=== PATIENT | male | born 1960 | race Caucasian/White ===

== ENCOUNTER 2018-07-12 09:51 | Outpatient (CLI) | payer MEDICAID, SELFPAY ==
[2018-07-12 13:06] LABS: Anion Gap 8.1 mmol/L (3-11); BUN 23 mg/dL (7-18); CO2 27.9 mmol/L (21.0-32.0); CREATININE 1.19 mg/dL (0.70-1.30); Calcium 9.2 mg/dL (8.5-10.1); Chloride 104 mmol/L (98-107); Glucose 92 mg/dL (70-100); Potassium 4.6 mmol/L (3.5-5.1); Sodium 140 mmol/L (136-145)
== END 2018-07-12 10:11 ==
PROVIDERS: PCP Family Medicine; Visit Provider Family Medicine
DX: I10 Essential (primary) hypertension (principal)
CPT/HCPCS: 36415; 80048

== ENCOUNTER 2019-07-18 07:00 | Outpatient (CLI) | payer MEDICAID, SELFPAY ==
[2019-07-18 12:44] LABS: Calculated LDL 111 mg/dL; Cholesterol 180 mg/dL (50-200); HDL Cholesterol 54 mg/dL (40-60); Triglyceride 78 mg/dL (30-150)
== END 2019-07-18 07:20 ==
PROVIDERS: PCP Family Medicine; Visit Provider Family Medicine
DX: Z00.00 Encounter for general adult medical examination without abnormal findings (principal); Z13.220 Encounter for screening for lipoid disorders
CPT/HCPCS: 36415; 80061

== ENCOUNTER 2020-07-25 11:10 | Outpatient (REF) | payer MEDICAID, SELFPAY ==
[2020-07-25 13:59] LABS: Anion Gap 5.3 mmol/L (3-11); BUN 19 mg/dL (7-18); CO2 29.7 mmol/L (21.0-32.0); CREATININE 1.28 mg/dL (0.70-1.30); Calcium 9.5 mg/dL (8.5-10.1); Calculated LDL 114 mg/dL (<100); Chloride 104 mmol/L (98-107); Cholesterol 182 mg/dL (<200); Estimated GFR 57.33 (mL/min/1.73m2); Glucose 100 mg/dL (74-106); HDL Cholesterol 50 mg/dL (40-60); Potassium 5.1 mmol/L (3.5-5.1); Sodium 139 mmol/L (136-145); Triglyceride 92 mg/dL (<150)
[2020-07-25 21:53] LABS: PSA, Screening 1.1 ng/mL (0.0-4.5)
== END 2020-07-25 11:30 ==
LOC: LBN 11:10
PROVIDERS: PCP Nurse Practitioner; Visit Provider Family Medicine
DX: I10 Essential (primary) hypertension (principal); Z12.5 Encounter for screening for malignant neoplasm of prostate
CPT/HCPCS: 80048; 80061; 84153

== ENCOUNTER 2020-08-23 02:21 | Outpatient (CLI) | payer MEDICAID, SELFPAY ==
[2020-08-26 10:18] LABS: SARS-CoV-2 RNA Not Detected (NotDetected); SARS-CoV-2 RNA Source Nasal/Nares
== END 2020-08-23 02:41 ==
PROVIDERS: PCP Nurse Practitioner; Visit Provider Surgery
DX: Z01.818 Encounter for other preprocedural examination (principal)
CPT/HCPCS: U0003

== ENCOUNTER 2020-08-27 06:13 | Day surgery (SDC) | payer MEDICAID, SELFPAY ==
[2020-08-27] VITALS (7 sets, daily range): BP systolic 98–136; BP diastolic 52–86; PULSE 63–79; RESP 16–23; TEMP 36–37; O2SAT 95–100
[2020-08-27] MEDS: Lactated Ringers 1,000 ML 80 ML IV (06:49)
--- NOTE | 2020-08-27 07:11 | W.PM.DSUDISC ---
Discharge Plan Disposition Patient Disposition: HOME Condition: Good Discharge Details Reason For Visit: Left inguinal hernia repair with mesh Attending Provider: Laurita Centeno Primary Care Provider: Isabell Valdivia Home Meds and New Rx's Prescriptions: Continued cyclobenzaprine 10 mg tablet 5 mg PO DAILY PRN (Reason: muscle spasm) Qty: 45 RF: 3 lisinopril 10 mg tablet 10 mg PO DAILY Qty: 90 RF: 4 omeprazole 20 mg capsule,delayed release(DR/EC) 20 mg PO DAILY Qty: 90 RF: 3 simvastatin [Zocor] 10 mg tablet 10 mg PO QHS Qty: 90 RF: 4 ascorbic acid (vitamin C) [Vitamin C] 500 MG tablet 500 mg PO DAILY RF: 0 Discharge Instructions Additional Instructions: The top bandage can be removed tomorrow. The steri strips will usually stick for about a week. When the edges start to curl up, they can be removed. It is okay to shower tomorrow, the water can run over the steri strips Do not swim or soak in a tub for two weeks Call for any concerns including fever, increased pain, vomiting, incision redness or drainage. Do not lift more than 15 pounds for four weeks. Walking and stairs are fine. Do not drive if on narcotic pain meds or if limited by pain. May use Tylenol alternating with ibuprofen for pain control. Ice is also an option. The maximum dose for Tylenol is 4000 mg/day. May use ibuprofen 800 mg every 8 hours as needed. If concerned about constipation, you may use a stool softener or milk of magnesia. Stand Alone Forms: Anes.Nerve Block Instructions, DSU Post op Instructions, Tommy Perry (DSU) Referrals: Laurita Centeno MD [ [facility] STAFF PHYSICIAN] - (Return in 10-14 days for a postop visit.) Activity:: Do not lift more than 15# for four weeks Remove Dressings/Wound Care:: 24 hours Shower/Bathe:: 24 hours Diet:: As Tolerated Discharge Orders Discharge Orders: Discharge Order (Routine); Ordered 08/27/20 Ordered By: Laurita Centeno DS: Diagnosis Discharge Diagnosis (1) Left inguinal hernia: Status: Acute
--- NOTE | 2020-08-27 07:13 | ROE_ITS ---
Operative Note Operative Note DATE OF PROCEDURE: 08/27/20 PRE-OP DIAGNOSIS: Left inguinal hernia PROCEDURE: Left inguinal hernia repair with mesh SURGEON: Laurita Centeno SUPERINTENDENT HORTICULTURE: Jennifer Wood ANESTHESIA: GETA, regional and local Indications: This 60 year old man presents with a reducible left inguinal hernia. Procedure Description: The patient was placed supine on the operating table and his left groin was prepped and draped sterilely. The ASIS and pubic tubercle were identified and a transverse incision marked between the 2 locations. Local anesthetic was infiltrated and the Ioban placed. Incision was made with knife and subcutaneous tissue divided with cautery down to the external oblique fascia. Any bridging veins that were encountered were clamped, divided and ligated with 3-0 Vicryl ties. A small incision was made in the fascia and extended bluntly through the external inguinal ring. The spermatic cord was dissected free at the level of the pubic tubercle and encircled with a Félix drain. There was some laxity within the floor of the inguinal canal with some protrusion of fat. This tranversus abdominus muscle was reapproximated with interrupted 2-0 Prolene sutures times two. Dissection within the cord revealed a moderate sized hernia sac containing fat. This was dissected free of the cord structures, opened and suture ligated at the base. The excess sac was trimmed and then reduced. A medium mesh plug was sutured into the internal ring with interrupted 2-0 Prolene sutures. A flat sheet of mesh was sutured to the floor of the inguinal canal in standard Sharon fashion. The cord was inspected and was not compressed by the mesh. There was good hemostasis. The external oblique fascia was closed with a running 3-0 Vicryl stitch and Juarez's fascia closed with interrupted 3-0 Vicryl sutures. The skin was then closed with a running 4 Monocryl subcuticular stitch. He tolerated the procedure well and was stable to recovery.
[2020-08-27] MEDS: ceFAZolin 2 GM/50 ML BAG IVPB (07:34)
== END 2020-08-27 11:09 | disposition home or self-care (01) ==
PROVIDERS: PCP Nurse Practitioner; Visit Provider Surgery
PROC: (CPT 49505; principal; 2020-08-27 07:30)
DX: K40.90 Unilateral inguinal hernia, without obstruction or gangrene, not specified as recurrent (principal); I10 Essential (primary) hypertension; E78.5 Hyperlipidemia, unspecified; K21.9 Gastro-esophageal reflux disease without esophagitis
CPT/HCPCS: 49505; 76942; C1781; J0690; J2001; J2704

== ENCOUNTER 2020-12-17 01:02 | Outpatient (CLI) | payer MEDICAID, SELFPAY ==
--- NOTE | 2020-12-17 07:00 | DI.MRI_ITS ---
EXAM: MR CERVICAL SPINE WO CLINICAL HISTORY: chronic neck pain worsening now with radiculopathy,M54.2,M54.10 TECHNIQUE: Multiplanar multisequence MRI of the cervical spine was performed without intravenous con trast. COMPARISON: No exams were available for comparison FINDINGS: BONES: Vertebral body heights are maintained. Intervertebral disc spaces are normal. Alignment is nor mal. Bone marrow signal intensity is within normal limits. CERVICAL CORD: Craniovertebral junction is unremarkable. The cervical cord is normal size and signal intensity. SOFT TISSUES: Unremarkable. C2-3: No disc herniation or bulge is identified. C3-4: Minimal disc bulging. C4-5: endplate osteophytes, eccentric toward the right and mild posterior disc bulging causing efface ment of the anterior CSF space and right neural foraminal narrowing. C5-6: Moderate loss of disc height. Broad-based disc osteophytes narrowing the AP dimension of the c entral canal and effacing the CSF space. Severe right and [id number]-vd-cdhzlvfe left neural foraminal pam rowing. C6-7: Mild disc bulging. C7-T1 and T1-2: No disc herniation or bulge is identified. IMPRESSION: Disc osteophytes, greatest at C 5 6, causing mild central canal stenosis and severe right neural fora carlos narrowing. No disc herniation is seen at any level. DATA REPOSITORY:
== END 2020-12-17 01:03 ==
LOC: DI 01:03
PROVIDERS: PCP Nurse Practitioner; Visit Provider Nurse Practitioner
DX: M54.2 Cervicalgia (principal); M54.12 Radiculopathy, cervical region; M48.02 Spinal stenosis, cervical region
CPT/HCPCS: 72141

== ENCOUNTER 2021-07-29 03:23 | Outpatient (CLI) | payer MEDICAID, SELFPAY ==
[2021-07-29 12:34] LABS: CREATININE 1.1 mg/dL (0.70-1.30); Calculated LDL 110 mg/dL (<100); Cholesterol 177 mg/dL (<200); HDL Cholesterol 52 mg/dL (40-60); Potassium 4.8 mmol/L (3.5-5.1); Triglyceride 78 mg/dL (<150)
== END 2021-07-29 03:24 | disposition home or self-care (01) ==
LOC: LOS 03:24
PROVIDERS: PCP Nurse Practitioner; Visit Provider Nurse Practitioner
DX: E78.5 Hyperlipidemia, unspecified (principal); I10 Essential (primary) hypertension
CPT/HCPCS: 36415; 80061; 82565; 84132

== ENCOUNTER 2022-08-28 01:32 | Outpatient (CLI) | payer MEDICAID, SELFPAY ==
--- OUTSIDE RECORDS SUMMARY | 2022-08-28 01:38 | XMS_ITS | Encounter Summary ---
:1960 Author Organization [facility] [place] [address] Care Team Providers Name Role Phone Salomon Paula MD, John Primary Care Provider Encounter Details Date Type Department Care Team Description 12/17/2020 Ancillary Procedure Radiology at [facility] Camden Rousseau [place] [address] NEUROS[facility]GERY[place], [place] [address] (Wo rk) Social History Tobacco Use Types Packs/Day Years Used Date Never Assessed Sex Assigned at Date Recorded Not on file documented as of this encounter Plan of Treatment Not on filedocumented as of this encounter Procedures Procedure Name Priority Date/Time Associated Diagnosis Comme nts FILM LIBRARY Routine 12/17/2020 5:03 PM Results f or this STORAGE ONLY MR EST procedure ar e in SPINE the results section. documented in this encounter Results Film Library- Storage Only MR Spine (12/17/2020 5:03 PM EST) Specimen (Source) Anatomical Location Collection Method / Collectio n Time Received Time / Laterality Volume Narrative CAMERON - 12/17/2020 5:03 PM EST This exam is auto-finalizing. It's purpo se is for storage only. Camden Rousseau MD IMG FILM LIBRARY ORDERABLES Performing Organization Address City/State/ZIP Code Phon e Number [place], [place] documented in this encounter Visit Diagnoses Not on filedocumented in this encounter Care Teams Assistant Athletic Trainer Relationship Specialty Start Date End Date Reji Latif MD PCP - General 09/16/10 [address] [place], [place] [id number] documented as of this encounter
--- OUTSIDE RECORDS SUMMARY | 2022-08-28 01:38 | XMS_ITS | Clinical Summary ---
:1960 Author Organization [facility] Address [address] [place] [address] Care Team Providers Name Role Phone Unknown, Provider Primary Care Provider Social History Tobacco Use Types Packs/Day Years Used Date Never Assessed Sex Assigned at Date Recorded Not on file Plan of Treatment Not on file Insurance Payer Benefit Plan Subscriber ID Effective Phone Address Typ e / Group Dates MEDICAID ACO MEDICAID ACO [id number] 2019-Pres [phone] [address] Medicaid [place] [address] [facility] [place] [address] Care Teams Dry Placer Machine Operator Relationship Specialty Start Date End Date Unknown, Provider, PCP - General 02/06/19
--- OUTSIDE RECORDS SUMMARY | 2022-08-28 01:38 | XMS_ITS | Clinical Summary ---
:1960 Author Organization [facility] [place] [address] Care Team Providers Name Role Phone Salomon Paula MD, John Primary Care Provider Allergies No known active allergies Medications Medication Sig Dispensed Refills Start Date End Date Status omeprazole (PRILOSEC OTC) 20 mg 0 02/21/20 05 Active tablet cyclobenzaprine (FLEXERIL) 10 mg 0 005 Active tablet enalapril (VASOTEC) 10 mg tablet 0 005 Active simvastatin (ZOCOR) 20 mg tablet 0 005 Active Social History Tobacco Use Types Packs/Day Years Used Date Never Assessed Sex Assigned at Date Recorded Not on file Plan of Treatment Health Maintenance Due Date Last Done Comments Covid-19 Vaccine (#1) 1960 HIV screen 01/21/1978 Hepatitis C Screening 01/21/1978 Tdap adult 01/21/1979 Tetanus vaccine 01/21/1979 Colonoscopy 01/21/2005 Zoster vaccine (1 of 2) 01/21/2010 Advance Directive 01/21/2015 Influenza (Flu) vaccine (1 of 1 - Influenza standard 06/25/2022 series) Insurance Payer Benefit Plan / Subscriber ID Effective Dates Phone Addre ss Type Group [place] [id number] 2020-Pres [phone] [address] [facility] ent [address] [place], [place] [phone] Care Teams Clinical Research Spec Relationship Specialty Start Date End Date Reji Latif MD PCP - General 09/16/10 [address] [place] [address] (Zacu)
--- OUTSIDE RECORDS SUMMARY | 2022-08-28 01:38 | XMS_ITS | Encounter Summary ---
:1960 Author Organization [facility] Address [address] [place] [id number] Care Team Providers Name Role Phone Unavailable Primary Care Provider Unavailable Encounter Details Date Type Department Care Team Description 02/03/2019 Hospital Encounter [facility]- Aditi Unknown, Provider, [facility] [address] [facility] [phone] [place] [address] (Work) [phone] Social History Tobacco Use Types Packs/Day Years Used Date Never Assessed Sex Assigned at Date Recorded Not on file documented as of this encounter Discharge Disposition Disposition Code Departure Means Destination Home or Self Assisted documented in this encounter Plan of Treatment Not on filedocumented as of this encounter Visit Diagnoses Not on filedocumented in this encounter
--- OUTSIDE RECORDS SUMMARY | 2022-08-28 01:38 | XMS_ITS | Encounter Summary ---
:1960 Author Organization [facility] Address [address] [place] [address] Care Team Providers Name Role Phone Unknown, Provider Primary Care Provider Encounter Details Date Type Department Care Team Description 07/25/2020 Lab Requisition [facility] Outr Resulting Lab, Pathology & Laboratory Provider [facility] [address] [place] [address] Social History Tobacco Use Types Packs/Day Years Used Date Never Assessed Sex Assigned at Date Recorded Not on file documented as of this encounter Plan of Treatment Not on filedocumented as of this encounter Procedures Procedure Name Priority Date/Time Associated Comments Diagnosis PSA TOTAL, Routine 07/25/2020 10:00 Results for this DIAGNOSTIC EDT procedure are i n the results section. documented in this encounter Results PSA TOTAL, DIAGNOSTIC (07/25/2020 10:00 EDT) Pathologist Sig nature PSA 1.1 0.0 - 4.5 ng/mL [facility] Specimen Blood - Venous blood (substance) Narrative [facility] - 07/25/2020 21:49 EDT NOTE: Serum PSA concentration should not be in terpreted as absolute evidence for the presence or absence of malignant disease. Assayed on Siemens ADVIA Centaur XPT usi ng chemiluminescent technology.??Values obtained by using different assay methods cannot be used interchangeably. Performing Organization Address City/State/ZIP Code Phon e Number [facility] [address] [place] [address] SERVICES documented in this encounter Visit Diagnoses Not on filedocumented in this encounter Care Teams Printer Operator Relationship Specialty Start Date End Date Unknown, Provider, PCP - General 02/06/19 documented as of this encounter
--- OUTSIDE RECORDS SUMMARY | 2022-08-28 01:38 | XMS_ITS | Encounter Summary ---
:1960 Author Organization [facility] [place] [address] Care Team Providers Name Role Phone Salomon Paula MD, John Primary Care Provider Encounter Details Date Type Department Care Team Description 08/23/2020 [facility] [place] [address] Social History Tobacco Use Types Packs/Day Years Used Date Never Assessed Sex Assigned at Date Recorded Not on file documented as of this encounter Medications at Time of Discharge Medication Sig Dispensed Refills Start Date End Date enalapril (VASOTEC) 10 mg tablet 0 09/2005 simvastatin (ZOCOR) 20 mg tablet 0 09/2005 cyclobenzaprine (FLEXERIL) 10 mg tablet 0 04/07/2005 omeprazole (PRILOSEC OTC) 20 mg tablet 0 02/20/2005 documented as of this encounter Plan of Treatment Not on filedocumented as of this encounter Procedures Procedure Name Priority Date/Time Associated Diagnosis Comme nts COVID-19 PCR Routine 08/23/2020 1:03 PM Results f or this EDT procedure are i n the results section . documented in this encounter Results COVID-19 PCR (08/23/2020 1:03 PM EDT) [facility] Method Time Signature SARS-CoV-2 Not Detected Not Detected [facility] Comment: This result should be interpreted in com bination with the clinical observations, patient history and epidem iological information in making a final diagnosis. For testing of asymptomatic i ndividuals, assay performance characteristics and clinical utility hav e not been evaluated. Testing for SARS-CoV-2 (Severe acute respiratory syn drome coronavirus 2, formerly known as 2019 novel coronavirus or 2019-nCoV) to aid in the diagnosis of COVID-19 is performed using the [employer] RealTime SARS -CoV-2 Assay as authorized by the FDA Emergency Use Authorization (EUA). This EUA assay is intended for In-vitro Diagnostic (IVD) use with respiratory sp ecimens such as nasopharyngeal swabs collected from individuals during the ac [place] phase of infection. This assay is performed based on the instructions for use provided by [employer] and additional guidance provided by CDC and FDA. Testing is performed in the [facility] within the Department of Pathology and Laboratory Medicine at [facility], certified under the Clinical Laboratory Improvement Amendments of 1988 (CLIA), 42 U.S.C. 263a, to perform high complexi ty tests. Assay performance has been verified according to clinical laborator y regulatory requirements for use with specimens collected from individuals dionte pected of COVID-19. Test results are provided above. A result of ? Not Detected? indicates that the viral RNA target is not present above the limit of detect ion, but does not preclude SARS-CoV-2 infection. False negative results may oc cur if a specimen is improperly collected, transported or handled; if am plification inhibitors are present; or if inadequate numbers of viral particles are present in the specimen. When a diagnostic test is negative, the possibi lity of a false negative result should be considered in the context of a patien t? s recent exposures and the presence of clinical signs and symptoms consisten t with COVID-19. A result of ? Detected? indicates that RNA from SARS-CoV-2 was d etected and the patient is infected. As required or requested by public health a uthorities, positive specimens may be sent for additional testing. Positive an d negative predictive values for this test are highly dependent on disease pre valence. A result of ? Invalid? indicates that neither the viral RNA tar gets nor the internal control target was detected. An invalid result suggests the presence of inhibitors. Recollection and re-testing is recommend ed in the case of an invalid result. CDC COVID-19 criteria for testing on hum an specimens and clinical management guidance information are available at th e CDC Coronavirus Disease 2019 (COVID-19) webpage under ? Information for Healthcare Professionals? (https://www.cdc.gov/coronavirus/2019-nc ov/hcp/index.html) Additional information about this and ot her EUA tests can be found in provider and patient fact sheets at the following FDA website: https://www.fda.gov/medical-devices/zmxpvorrebc-muvrspu-8755-mfbzl-41-wjbpxptas- olp-kcbebnjkdzmrwz-svxkshy-devices/srzje-jhdkkmeycoz-fbjl SARS-Cov-2 RNA Source Nasal [facility] Specimen Anatomical Collection Method Collection Time Receive d Time (Source) Location / / Volume Laterality Specimen from Other / Unknown 08/23/2020 1:03 PM 08/23 nose (specimen) EDT 11:21 PM EDT Resulting Agency Comment Spec In Lab Laurita Centeno MD MICROBIOLOGY - GENERAL ORDER [facility] Performing Organization Address City/State/[place] [address] documented in this encounter Visit Diagnoses Not on filedocumented in this encounter Care Teams Prosthodontist/Educator Relationship Specialty Start Date End Date Reji Latif MD PCP - General 09/16/10 [address] [place] [address] documented as of this encounter
[2022-08-28 12:34] LABS: CREATININE 1.1 mg/dL (0.70-1.30); Calculated LDL 111 mg/dL (<100); Cholesterol 182 mg/dL (<200); HDL Cholesterol 58 mg/dL (40-60); Potassium 4.4 mmol/L (3.5-5.1); Triglyceride 69 mg/dL (<150)
== END 2022-08-28 01:33 | disposition home or self-care (01) ==
LOC: LOS 01:32
PROVIDERS: PCP Nurse Practitioner Family; Visit Provider Nurse Practitioner
DX: I10 Essential (primary) hypertension (principal); E78.5 Hyperlipidemia, unspecified
CPT/HCPCS: 36415; 80061; 82565; 84132

== ENCOUNTER 2023-09-01 01:21 | Outpatient (CLI) | payer MEDICAID, SELFPAY ==
[2023-09-01 13:12] LABS: ALT 26 U/L (16-63); AST 20 U/L (15-37); Albumin 3.7 g/dL (3.4-5.0); Alkaline Phosphatase 128 U/L (46-116); Anion Gap 10.4 mmol/L (3-11); BUN 13 mg/dL (7-18); Bilirubin, Total 0.4 mg/dL (0.2-1.0); CO2 25.6 mmol/L (21.0-32.0); CREATININE 1.1 mg/dL (0.70-1.30); Calcium 9.8 mg/dL (8.5-10.1); Calculated LDL 83 mg/dL (<100); Chloride 103 mmol/L (98-107); Cholesterol 146 mg/dL (<200); Estimated GFR 75.43 (mL/min/1.73m2); Glucose 100 mg/dL (74-106); HDL Cholesterol 46 mg/dL (40-60); Potassium 3.7 mmol/L (3.5-5.1); Sodium 139 mmol/L (136-145); Triglyceride 89 mg/dL (<150)
[2023-09-02 09:57] LABS: Hepatitis C Ab w Rflx HCV PCR Negative (Negative)
== END 2023-09-01 01:22 | disposition home or self-care (01) ==
LOC: LOS 01:21
PROVIDERS: PCP Nurse Practitioner Family; Visit Provider Nurse Practitioner Family
DX: E78.5 Hyperlipidemia, unspecified (principal); Z11.59 Encounter for screening for other viral diseases
CPT/HCPCS: 36415; 80053; 80061; 86803

== ENCOUNTER 2024-09-06 02:20 | Outpatient (CLI) | payer MEDICAID, SELFPAY ==
[2024-09-06 12:39] LABS: ALT 10 U/L (16-63); AST 18 U/L (15-37); Alkaline Phosphatase 115 U/L (46-116); Anion Gap 7.3 mmol/L (3-11); BUN 19 mg/dL (7-18); Bilirubin, Total 0.73 mg/dL (0.2-1.0); CO2 29.7 mmol/L (21.0-32.0); CREATININE 1.4 mg/dL (0.70-1.30); Calcium 9.7 mg/dL (8.5-10.1); Calculated LDL 109 mg/dL (<100); Chloride 107 mmol/L (98-107); Cholesterol 189 mg/dL (<200); Estimated GFR 56.13 (mL/min/1.73m2); Glucose 94 mg/dL (74-106); HDL Cholesterol 63 mg/dL (40-60); Sodium 144 mmol/L (136-145); Total Protein 7.9 g/dL (6.4-8.2); Triglyceride 86 mg/dL (<150)
== END 2024-09-06 02:21 | disposition home or self-care (01) ==
LOC: LOS 02:20
PROVIDERS: PCP Nurse Practitioner Family; Visit Provider Nurse Practitioner Family
DX: E78.5 Hyperlipidemia, unspecified (principal); Z23 Encounter for immunization; K21.9 Gastro-esophageal reflux disease without esophagitis; Z00.00 Encounter for general adult medical examination without abnormal findings; I10 Essential (primary) hypertension
CPT/HCPCS: 36415; 80053; 80061

== ENCOUNTER 2025-06-19 02:04 | Outpatient (CLI) | payer MEDICARE, SELFPAY ==
--- NOTE | 2025-06-19 06:30 | DI.US_ITS ---
Exam(s) US LOWER EXTREMITY VENOUS RT EXAM: US LOWER EXTREMITY VENOUS RT CLINICAL HISTORY: 1 month of rt leg swelling,m79.89 TECHNIQUE: Right lower extremity venous ultrasound performed using grayscale, color-flow, and spectral Doppler analysis. COMPARISON: There are no priors for comparison. FINDINGS: There is extensive thrombus seen in the right lower extremity. There is thrombus seen from the peroneal and tibial veins in the calf to the visualized portions of the external iliac vein. The common femoral, femoral and popliteal veins are all involved and contain thrombus. The thrombus is mostly occlusive throughout its entire length. The visualized greater saphenous vein is patent. There is no evidence of a Lyons cyst. The soft tissues are unremarkable. IMPRESSION: Extensive right lower extremity thrombus from the right external iliac vein all the way to peroneal and tibial veins in the calf. DATA REPOSITORY:
== END 2025-06-19 02:24 ==
LOC: DI 02:04
PROVIDERS: PCP Nurse Practitioner Family; Visit Provider Nurse Practitioner Family
DX: M79.89 Other specified soft tissue disorders (principal)
CPT/HCPCS: 93971

== ENCOUNTER 2025-09-07 10:15 | Outpatient (CLI) | payer MEDICARE, SELFPAY ==
[2025-09-07 14:34] LABS: ALT 28 U/L (10-49); AST 23 U/L (<34); Albumin 4.6 g/dL (3.4-5.0); Alkaline Phosphatase 112 U/L (46-116); Anion Gap 11.5 mmol/L (3-11); BUN 16 mg/dL (9-23); Bilirubin, Total 0.70 mg/dL (0.2-1.2); CO2 25.5 mmol/L (20.0-31.0); Calcium 9.6 mg/dL (8.3-10.6); Chloride 107 mmol/L (98-107); Cholesterol 170 mg/dL (<200); Glucose 87 mg/dL (74-106); HDL Cholesterol 59 mg/dL (>40); Potassium 4.4 mmol/L (3.5-5.1); Sodium 144 mmol/L (136-145); Total Protein 7.4 g/dL (5.7-8.2)
== END 2025-09-07 10:16 | disposition home or self-care (01) ==
PROVIDERS: PCP Nurse Practitioner Family; Visit Provider Nurse Practitioner Family
DX: E78.5 Hyperlipidemia, unspecified (principal)
CPT/HCPCS: 36415; 80053; 80061

== ENCOUNTER → 2025-09-19 01:50 | Outpatient (CLI) | payer MEDICARE, SELFPAY ==
--- NOTE | 2025-09-19 09:45 | DI.US_ITS ---
Exam(s) US LOWER EXTREMITY VENOUS RT EXAM: US LOWER EXTREMITY VENOUS RT CLINICAL HISTORY: f/u DVT,CALF SWELLING,M79.89 TECHNIQUE: Right lower extremity venous ultrasound performed using grayscale, color-flow, and spectral Doppler analysis. COMPARISON: US US LOWER EXTREMITY VENOUS RT from 06/19/2025 FINDINGS: There is no longer thrombus seen in the external iliac vein, the common femoral vein and the proximal femoral veins. These are patent. The deep femoral vein is also patent. There is there is occlusive and nonocclusive thrombus which persists in the mid and distal femoral vein and into the popliteal vein. This measures 22 cm in length. There is nonocclusive residual thrombus seen in the paired posterior tibial and peroneal veins. This measures 10 cm in length. The saphenofemoral junction is unremarkable. There is no evidence of a Lyons cyst. The soft tissues are unremarkable. IMPRESSION: 1. There is residual occlusive and nonocclusive thrombus seen in the mid and distal femoral vein, popliteal vein and paired posterior tibial and peroneal veins. 2. The previously seen thrombus in the external iliac vein, common femoral vein and proximal femoral vein has resolved. DATA REPOSITORY:
== END ==
PROVIDERS: PCP Nurse Practitioner Family; Visit Provider Nurse Practitioner Family
DX: M79.89 Other specified soft tissue disorders (principal); I82.412 Acute embolism and thrombosis of left femoral vein
CPT/HCPCS: 93971